=== PATIENT | female | born 1960 | race Caucasian/White ===

== ENCOUNTER 2022-01-29 14:01 | Outpatient (CLI) | payer BC | END 2022-01-29 14:02 | disposition home or self-care (01) | LOC: CSHMAMMO 14:01 | PROVIDERS: ATTEND Obstetrics & Gynecology | DX: Z12.31 Encounter for screening mammogram for malignant neoplasm of breast (principal); Z80.3 Family history of malignant neoplasm of breast | CPT/HCPCS: 77063; 77067 ==

== ENCOUNTER 2023-03-12 09:32 | Outpatient (CLI) | payer BC | END 2023-03-12 09:33 | disposition home or self-care (01) | LOC: CSHMAMMO 09:32 | PROVIDERS: ATTEND Internal Medicine | DX: Z12.31 Encounter for screening mammogram for malignant neoplasm of breast (principal); M81.0 Age-related osteoporosis without current pathological fracture; M85.89 Other specified disorders of bone density and structure, multiple sites; Z80.3 Family history of malignant neoplasm of breast | CPT/HCPCS: 77063; 77067; 77080 ==

== ENCOUNTER 2023-05-14 09:36 | Day surgery (SDC) | payer BC ==
[2023-05-14 12:43] VITALS: BP 121/63; TEMP 98.4
== END 2023-05-14 11:15 | disposition home or self-care (01) ==
LOC: CSHULT 09:36
PROVIDERS: ATTEND Orthopaedic Surgery
PROC: 0RB Upper Joints, Excision (ICD-10-PCS; principal; 2023-05-14)
DX: M75.32 Calcific tendinitis of left shoulder (principal)
CPT/HCPCS: 10005